=== PATIENT | female | born 1990 | race American Indian/Alaskan Native ===

== ENCOUNTER 2018-02-25 22:05 | Emergency (ER) | payer SELFPAY ==
[2018-02-25 22:30] VITALS: BP 138/84
--- NOTE | 2018-03-01 14:22 | XRay Report ---
FINAL REPORT EXAM: XR CHEST ROUTINE 2V HISTORY: Coughing, difficulty breathing. TECHNIQUE: Frontal and lateral radiographs of the chest were obtained. No prior studies are available for comparison. FINDINGS: The cardiac silhouette and mediastinum are within normal limits. The lungs are clear bilaterally, without focal infiltrate or effusion. There is no pneumothorax. No significant osseous abnormalities are identified. IMPRESSION: No active disease seen in the chest.
== END 2018-02-26 03:03 | disposition left against medical advice (07) ==
LOC: ED 22:05
DX: R05 Cough (principal); Z53.21 Procedure and treatment not carried out due to patient leaving prior to being seen by health care provider
CPT/HCPCS: 71046